=== PATIENT | female | born 1950 | race Caucasian/White ===

== ENCOUNTER 2022-02-15 22:23 | Inpatient (IN) | payer OTHER ==
[~2022-02-15] VITALS: Ht 152.4 cm; Wt 47.6 kg
[2022-02-15 22:26] VITALS: BP_SYST 141
[2022-02-15] MEDS ORDERED: MAG HYDROX/AL HYDROX/SIMETH 30 ML, LIDOCAINE VISCOUS 2% 15ML (PO) 15 ML, DICYCLOMINE HC... PO ONE ×3 (22:30)
[2022-02-15] MEDS ORDERED: PANTOPRAZOLE SODIUM 40 MG/VIAL (PROTONIX) IVP ONE (22:45)
[2022-02-15] MEDS ORDERED: METOCLOPRAMIDE HCL 10 MG/2 ML VIAL IVP ONE (23:00)
[2022-02-15 23:08] LABS: HEMOGLOBIN 13.5 g/dL (12.0-16.0)
[2022-02-15 23:14] LABS: BASOPHILS # (AUTO) 0.1 K/uL (0.0-0.2); BASOPHILS % (AUTO) 0.7 % (0.0-2.0); EOSINOPHILS # (AUTO) 0.1 K/uL (0.0-0.4); EOSINOPHILS % (AUTO) 0.7 % (0.0-4.0); HEMATOCRIT 40.4 % (36-48); LYMPHOCYTES # (AUTO) 1.2 K/uL (1.0-5.5); LYMPHOCYTES % (AUTO) 15.7 % (20.5-51.5); MEAN CORPUSCULAR HEMOGLOBIN 28 pg (27-31); MEAN CORPUSCULAR HGB CONC 33 % (32-36); MEAN CORPUSCULAR VOLUME 85 fL (79.0-98.0); MONOCYTES # (AUTO) 0.5 K/uL (0.0-1.0); MONOCYTES % (AUTO) 6.1 % (1.7-9.3); NEUTROPHILS # (AUTO) 6.1 K/uL (1.8-7.7); NEUTROPHILS % (AUTO) 76.8 % (40.0-70.0); PLATELET COUNT (AUTO) 224 K/uL (130-430); RED BLOOD CELL COUNT(AUTO) 4.75 MIL/uL (4.2-6.2); RED CELL DISTRIBUTION WIDTH 14.2 % (9.0-15.0)
[2022-02-15 23:24] LABS: ANION GAP 9 (5-15); CALCIUM 9.7 mg/dL (8.4-11.0); CHLORIDE 97 mmol/L (98-107); CREATININE 0.85 mg/dL (0.55-1.30); GLUCOSE 160 mg/dL (70-99); POTASSIUM 3.9 mmol/L (3.5-5.1); SODIUM SERUM 131 mmol/L (136-145); UREA NITROGEN, BLOOD 27 mg/dL (8-21)
[2022-02-15 23:45] LABS: ALANINE AMINOTRANSFERASE 11 U/L (12-78); ASPARTATE AMINOTRANSFERASE 18 U/L (10-37); TOTAL BILIRUBIN 0.5 mg/dL (0.0-1.0)
[2022-02-15 23:46] LABS: GFR AFRICAN AMERICAN 85 mL/min (>90)
[2022-02-16] MEDS ORDERED: NITROGLYCERIN 1 INCH (GM) OINT. TP ONE
[2022-02-16] MEDS ORDERED: ENOXAPARIN SODIUM 40 MG/0.4 ML SYRINGE SUBCUT ONE
[2022-02-16] MEDS ORDERED: NITROGLYCERIN 0.4 MG TAB.SUBL SL ONE
[2022-02-16] MEDS ORDERED: NITROGLYCERIN 0.4 MG TAB.SUBL SL PRN
[2022-02-16 01:04] VITALS: BP_SYST 111
[2022-02-16] MEDS ORDERED: *LOVENOX 1MG/KG Q12H/PHARMACY XX ONE (07:00)
[2022-02-16] MEDS ORDERED: METF-518 PO (07:04)
[2022-02-16] MEDS ORDERED: LOSA25TA3 PO (07:04)
[2022-02-16] MEDS ORDERED: ROSU10TA2 PO (07:04)
[2022-02-16] MEDS ORDERED: CANA300T PO (07:04)
[2022-02-16] MEDS ORDERED: ASPI-1155 PO (07:05)
[2022-02-16] MEDS ORDERED: B12 (07:05)
[2022-02-16] MEDS ORDERED: DULA1.5P SQ (07:05)
[2022-02-16] MEDS ORDERED: LATA7.5D OP (07:05)
[2022-02-16] MEDS ORDERED: MG T1TAB4 PO (07:05)
[2022-02-16] MEDS ORDERED: OMEG1CAP PO (07:05)
[2022-02-16] MEDS ORDERED: PANT20TA16 PO (07:05)
[2022-02-16] MEDS ORDERED: CA C-2 PO (07:05)
[2022-02-16] MEDS ORDERED: POLY17PO4 PO (07:05)
[2022-02-16 08:10] VITALS: BP_SYST 108
[2022-02-16] MEDS ORDERED: NACL 0.9% 1,000 ML IV SCH (08:30)
[2022-02-16] MEDS ORDERED: ASPIRIN 81 MG TAB.CHEW PO ONE (09:00)
[2022-02-16] MEDS ORDERED: PANTOPRAZOLE SODIUM 40 MG/VIAL (PROTONIX) IVP ONE (09:00)
[2022-02-16] MEDS ORDERED: CARVEDILOL 6.25 MG TABLET (COREG) PO ONE (09:00)
[2022-02-16 09:11] LABS: PROTHROMBIN TIME 10.4 SECS (9.5-12.5)
[2022-02-16] MEDS ORDERED: INSULIN LISPRO SLIDING SCALE 100 UNITS/ML VIAL (humaLOG) SUBCUT PRN (09:30)
[2022-02-16] MEDS ORDERED: DEXTROSE 50% JECT 50 ML DISP.SYRIN IVP PRN (09:30)
[2022-02-16] MEDS ORDERED: ENOXAPARIN SODIUM 60 MG/0.6 ML SYRINGE SUBCUT ONE (09:45)
[2022-02-16 11:30] VITALS: BP_SYST 138
[2022-02-16] MEDS ORDERED: ENOXAPARIN SODIUM 60 MG/0.6 ML SYRINGE SUBCUT SCH (12:00)
[2022-02-16 12:49] LABS: THYROID STIMULATING HORMONE 2.27 uIu/mL (0.36-3.74)
[2022-02-16 15:40] VITALS: BP_SYST 127
[2022-02-16 15:50] VITALS: BP_SYST 127
[2022-02-16] MEDS ORDERED: CARVEDILOL 6.25 MG TABLET (COREG) PO SCH (21:00)
[2022-02-17] MEDS ORDERED: ASPIRIN 81 MG TAB.CHEW PO SCH (09:00)
== END 2022-02-16 20:54 | disposition short-term general hospital (02) | DRG 281 ==
LOC: SED 22:23 → STU 23:57
PROVIDERS: ADMIT Family Medicine; ATTEND Family Medicine
DX: I21.4 Non-ST elevation (NSTEMI) myocardial infarction (principal); E87.1 Hypo-osmolality and hyponatremia; I24.9 Acute ischemic heart disease, unspecified; I25.10 Atherosclerotic heart disease of native coronary artery without angina pectoris; E11.9 Type 2 diabetes mellitus without complications; E78.5 Hyperlipidemia, unspecified; I10 Essential (primary) hypertension; K21.9 Gastro-esophageal reflux disease without esophagitis; Z20.822 Contact with and (suspected) exposure to COVID-19; E87.8 Other disorders of electrolyte and fluid balance, not elsewhere classified; Z63.4 Disappearance and death of family member; Z79.899 Other long term (current) drug therapy; Z88.5 Allergy status to narcotic agent
CPT/HCPCS: 36415; 71045; 76376; 80053; 80061; 82962; 83880; 84443; 84484; 85025; 85610-TC; 85730-TC; 93005; 93306; 96372; 96374; 96375; 99285; C9113; G0378; J1650; J2001; J2765